=== PATIENT | female | born 2000 | race Caucasian/White ===

== ENCOUNTER 2022-10-25 15:38 | Emergency (ER) | payer OTHER, SELFPAY ==
[2022-10-25] VITALS (7 sets, daily range): BP systolic 113–127; BP diastolic 73–85; PULSE 93; RESP 15; TEMP 37.3; O2SAT 99–100
[2022-10-25 15:57] LABS: Basophils Percent Auto 0.3 % (0.2-1.2); Eosinophils Absolute Auto 0.1 K/mm3 (0-0.3); Eosinophils Percent Auto 1.2 % (0-4.4); Hematocrit 36.6 % (37.0-47.0); Hemoglobin 12.5 g/dL (12.0-15.0); Immature Granulocyte Absolute 0.03 K/mm3 (0.00-0.031); Immature Granulocyte Percent A 0.5 % (0-0.5); Lymphocytes Absolute Auto 1.45 K/mm3 (0.9-3.2); Lymphocytes Percent Auto 21.9 % (18.3-44.2); Mean Corpuscular HGB Conc 34.2 g/dl (32-36); Mean Corpuscular Hemoglobin 30.7 pg (26-34); Mean Corpuscular Volume 89.9 fl (80-100); Mean Platelet Volume 10.2 fl (7.4-10.4); Monocytes Absolute Auto 0.4 K/mm3 (0.1-0.6); Monocytes Percent Auto 6.6 % (2.6-8.5); Neutrophils Absolute Auto 4.6 K/mm3 (1.3-6.7); Neutrophils Percent Auto 69.5 % (45.5-73.1); Platelet Count Result 229 k/mm3 (150-375); Red Blood Count 4.07 M/mm3 (4.2-5.4); Red Cell Distribution Width 12.6 % (11.5-14.5); White Blood Count 6.6 K/mm3 (4.5-10.0)
[2022-10-25 16:00] LABS: Appearance Urine Clear (Clear); Bacteria Urine 1+ /hpf; Bilirubin Urine Negative (Negative); Blood Urine Negative (Negative); Color Urine Dark Yellow (Yellow); Glucose Urine UA Negative (Negative); Ketones Urine Trace mg/dL (Negative); Leukocyte Esterase Ur 1+ LEU/UL (Negative); Nitrate Urine Negative (Negative); Non Pathogenic Casts 0-2; Protein Urine Negative (Negative); RBC Urine 0-2 /hpf (0-2); Specific Grav Ur 1.025 (1.001-1.035); Squamous Epithelial Cell Urine Few /hpf (Few); Urobilinogen Urine 0.2 mg/dL (<2.0); WBC Urine 21-50 /hpf; pH Urine 5.5 (5.0-9.0)
[2022-10-25 16:05] LABS: Add Urine Microscopic? YES
[2022-10-25 16:07] LABS: Alanine Aminotransferase 26 U/L (6-35); Albumin Level 3.8 g/dL (3.5-5.1); Alkaline Phosphatase 42 U/L (38-126); Anion Gap 5 mmol/L (8-16); Aspartate Amino Transferase 25 U/L (14-36); Bilirubin,Total 0.1 mg/dL (0.2-1.3); Blood Urea Nitrogen 7 mg/dL (7-17); Calcium 8.4 mg/dL (8.4-10.2); Carbon Dioxide 20 mmol/L (22-30); Chloride 106 mmol/L (98-107); Estimated CRCL calculation 110 ml/min; Estimated Glomerular Filt Rate > 60; Glucose 86 mg/dL (65-110); Lipase 32 U/L (23-300); Potassium 3.8 mmol/L (3.4-5.0); Sodium 131 mmol/L (137-145)
--- NOTE | 2022-10-25 17:32 | ED.NAVMDI ---
HPI - Nausea/Vomiting/Diarrhea General Chief complaint: Nausea/Vomiting/Diarrhea Stated complaint: N/V during - 8 weeks Time Seen by Provider: 10/25/22 17:19 Source: patient Mode of arrival: ambulatory Limitations: no limitations History of Present Illness HPI Narrative: This is a 22 year old , 8 weeks , that presents to the ER for nausea and vomiting. Reports she has had a lot of trouble with morning sickness this . She has been taking vitamin B6 and Unisom over the last week which helped initially. Yesterday and today she has not been able to keep much food or water down. Her OB is Dr. Ramachandran. She has had an ultrasound which showed an intrauterine . Denies fevers, abdominal pain, dysuria, vaginal bleeding, or hematuria. Related Data Allergies Allergy/AdvReac Type Severity Reaction Status Date / Time No Known Allergies Allergy Verified 10/25/22 15:39 Review of Systems Review of Systems: CONSTITUTIONAL: Denies fever GASTROINTESTINAL: Reports nausea and vomiting. Denies abdominal pain GENITOURINARY: Denies dysuria or hematuria. All systems reviewed & are unremarkable except as noted in HPI and below PMFSH Past Medical History Medical History (Updated 10/25/22 @ 19:25 by Patricia Roca PA-C) History of depression Social History Social History (Updated 10/25/22 @ 17:35 by Patricia Roca PA-C) Smoking status: Former smoker Exam Narrative: GENERAL: Well-appearing, well-nourished, and in no acute distress. HEAD: Normocephalic, atraumatic. EYES: EOMI. ENT: Mucous membranes moist. CHEST: Clear to auscultation. No respiratory distress. No wheezes rales or rhonchi HEART: Regular rate and rhythm. No murmur heard. Normal peripheral pulses. ABDOMEN: Soft, nontender, nondistended, normal active bowel sounds. EXTREMITIES: Normal range of motion. No edema. SKIN: Warm, dry, no rash. NEURO: No focal deficits. Alert and oriented x3. PSYCH: Normal mood and affect Course Course Emergency Course: Patient was updated on work-up and agrees with plan of care Consultations Consultation #1: Spoke with Dr. Elizondo about patient and work-up. Patient will be discharged with prescription for Phenergan as needed. Date: 10/25/22 Time: 19:24 Vital Signs Vital signs: Vital Signs Temperature 99.2 F 10/25/22 15:41 Pulse Rate 93 10/25/22 15:41 Respiratory Rate 15 10/25/22 15:41 Blood Pressure 127/85 10/25/22 15:41 Pulse Oximetry 99 10/25/22 15:41 Oxygen Delivery Room Air 10/25/22 15:41 Temperature 99.2 F 10/25/22 15:41 Pulse Rate 93 10/25/22 15:41 Respiratory Rate 15 10/25/22 15:41 Blood Pressure 127/85 10/25/22 15:41 Pulse Oximetry 99 10/25/22 15:41 Oxygen Delivery Room Air 10/25/22 15:41 Procedures Other Procedure Procedure 1: Other Procedure: Bedside ultrasound performed which showed intrauterine with positive cardiac motion, heart rate of 154 MDM - Nausea/Vomiting/Diarrhea MDM Narrative Medical decision making narrative: Patient presents to the emergency department for nausea and vomiting, 8 weeks . She denies any pelvic cramping or vaginal bleeding. Reports she has had a ultrasound in the last week that showed an intrauterine . Bedside ultrasound today does show activity and positive cardiac motion. She is afebrile and nontoxic-appearing. Her vitals are stable. CBC and metabolic panel without concerning findings. UA with possible evidence of infection. This will be sent for culture. Patient will be started on antibiotics pending culture results. Patient hydrated and given dose of antiemetic with relief. Spoke with Dr. Elizondo about patient and work-up. Patient will be discharged with prescription for Phenergan as needed. She is to follow-up in clinic. She was given warnings to return to the ER Differential Diagnosis Differential diagnosis: Likely food poisoning, gastroenteri
[2022-10-25 17:33] LABS: Pregnancy On Board Control Positive; Urine Pregnancy Test Positive
[2022-10-25] MEDS: ONDANSETRON INJ 4 MG/2 ML VIAL IV PUSH (17:39)
[2022-10-25] MEDS: SODIUM CHLORIDE 0.9% IV 1,000 ML 999 ML IV CONT (17:39)
== END 2022-10-25 19:40 | disposition home or self-care (01) ==
PROVIDERS: Emergency Medicine; Emergency Provider Physician Assistant; PCP Obstetrics & Gynecology
DX: O21.9 Vomiting of pregnancy, unspecified (principal); Z87.891 Personal history of nicotine dependence; Z3A.08 8 weeks gestation of pregnancy
CPT/HCPCS: 36415; 80053; 81001; 81025; 83690; 85025; 87086; 96361; 96374; 99284; J2405; J7030